=== PATIENT | female | born 1980 | race Caucasian/White ===

== ENCOUNTER 2023-09-08 18:36 | Emergency (ER) | payer OTHER ==
[~2023-09-08] VITALS: Ht 170.2 cm; Wt 110.2 kg
[2023-09-08 18:40] VITALS: BP 168/95; PULSE 70; RESP 18; TEMP 98; O2SAT 98
== END 2023-09-08 19:30 | disposition home or self-care (01) ==
LOC: ER 18:36
DX: S93.401A Sprain of unspecified ligament of right ankle, initial encounter (principal); S50.12XA Contusion of left forearm, initial encounter; Z90.710 Acquired absence of both cervix and uterus; W19.XXXA Unspecified fall, initial encounter; Y93.89 Activity, other specified; Y92.89 Other specified places as the place of occurrence of the external cause; Y99.8 Other external cause status
CPT/HCPCS: 99284; 73090-LT; 73610-RT

== ENCOUNTER → 2024-09-03 | Outpatient (CLI) | payer OTHER | END | disposition home or self-care (01) | LOC: RAD 15:06 | PROVIDERS: ATTEND Student in an Organized Health Care Education/Training Program | DX: I87.2 Venous insufficiency (chronic) (peripheral) (principal); M79.604 Pain in right leg; M79.605 Pain in left leg | CPT/HCPCS: 93922; 93925; 93970 ==

== ENCOUNTER → 2024-09-24 | Outpatient (CLI) | payer OTHER | END | disposition home or self-care (01) | LOC: RAD 09-18 08:39 | PROVIDERS: ATTEND Student in an Organized Health Care Education/Training Program | DX: K42.9 Umbilical hernia without obstruction or gangrene (principal); K40.90 Unilateral inguinal hernia, without obstruction or gangrene, not specified as recurrent; R23.0 Cyanosis | CPT/HCPCS: 75635; Q9965 ==

== ENCOUNTER → 2025-03-02 | Outpatient (CLI) | payer OTHER | END | disposition home or self-care (01) | LOC: RAD 10:53 | PROVIDERS: ATTEND Student in an Organized Health Care Education/Training Program | DX: M79.672 Pain in left foot (principal) | CPT/HCPCS: 73630-LT ==

== ENCOUNTER → 2025-05-04 | Outpatient (CLI) | payer OTHER | END | disposition home or self-care (01) | LOC: RAD 08:39 | PROVIDERS: ATTEND Student in an Organized Health Care Education/Training Program | DX: M79.672 Pain in left foot (principal) | CPT/HCPCS: 73718 ==